=== PATIENT | female | born 1945 | race Caucasian/White ===

== ENCOUNTER 2019-06-05 10:44 | Day surgery (SDC) | payer MEDICARE, OTHER ==
[~2019-06-05] VITALS: Ht 154.9 cm; Wt 51.0 kg
[~2019-06-05 10:44] MED LIST: AZIT250 PO; Antivert25 MG PO; BENZ100A PO; ESZO1 PO; FLUV20; HYDROCODON-ACE1 EACH PO; ISOMON30 PO; LATA.005SO; LOSA50 PO; LOVA40 PO; LOW DOSE ASPIRI81 MG PO; TRAV.004OP OD; Ultram50 MG PO
[2019-06-05] MEDS ORDERED: CELE100 PO (11:24)
[2019-06-05] MEDS ORDERED: LATA.005SO BOTHEYES (11:25)
[2019-06-05] MEDS ORDERED: BRIMONIDINE TART5 M1 BOTHEYES (11:25)
== END 2019-06-05 15:00 | disposition home or self-care (01) ==
LOC: ORSCSDS 10:44
PROVIDERS: Podiatrist Foot & Ankle Surgery
PROC: 0SGN04Z Fusion of Left Metatarsal-Phalangeal Joint with Internal Fixation Device, Open Approach (ICD-10-PCS; principal; 2019-06-05 12:30)
PROC: 0HTRXZZ Resection of Toe Nail, External Approach (ICD-10-PCS; principal; 2019-06-05 12:30)
DX: M20.22 Hallux rigidus, left foot (principal); M20.5X9 Other deformities of toe(s) (acquired), unspecified foot; Q82.8 Other specified congenital malformations of skin; B35.1 Tinea unguium; Z01.818 Encounter for other preprocedural examination; I10 Essential (primary) hypertension; E78.5 Hyperlipidemia, unspecified; Z79.899 Other long term (current) drug therapy
CPT/HCPCS: 93005; 93010; C1713; C1769; J0171; J0690; J1100; J1885; J2250; J2405; J2704; J3010; J7120

== ENCOUNTER → 2019-10-09 | Outpatient (CLI) | payer MEDICARE, OTHER ==
[~2019-10-09] MED LIST changes: +BRIMONIDINE TART5 M1 BOTHEYES; +CELE100 PO; +LATA.005SO BOTHEYES
[2019-10-09 10:31] LABS: Creatinine Urine 49.7 mg/dL (27.00-270.00)
== END | disposition home or self-care (01) ==
LOC: LAB 09:32 → LAB SHORT 09:32 → LAB FUT 10-05 11:45
PROVIDERS: Internal Medicine
DX: E87.6 Hypokalemia (principal)
CPT/HCPCS: 81050; 82570; 84133; 84300

== ENCOUNTER 2021-01-25 00:20 | Emergency (ER) | payer MEDICARE, OTHER ==
[~2021-01-25] VITALS: Ht 152.4 cm; Wt 49.9 kg
[2021-01-25 03:28] LABS: BASOPHILS ABSOLUTE AUTO 0.02 K/mm3 (0.00-0.23); BASOPHILS PERCENT AUTO 0 % (0-2); EOSINOPHILS ABSOLUTE AUTO 0.02 K/mm3 (0.00-0.68); EOSINOPHILS PERCENT AUTO 0 % (0-6); Hematocrit 40.4 % (33.0-51.0); Hemoglobin 13.5 g/dL (11.5-16.0); IMMATURE GRAN ABSOLUTE AUTO 0.03 K/mm3 (0.00-0.10); IMMATURE GRAN PERCENT AUTO 0 % (0-1); LYMPHOCYTES ABSOLUTE AUTO 0.41 K/mm3 (0.84-5.20); LYMPHOCYTES PERCENT AUTO 4 % (21-46); MONOCYTES ABSOLUTE AUTO 0.28 K/mm3 (0.16-1.47); MONOCYTES PERCENT AUTO 3 % (4-13); Mean Corpuscular HGB 29.8 pg (26.0-34.0); Mean Corpuscular HGB Conc 33.4 g/dL (31.5-36.5); Mean Corpuscular Volume 89 fL (80-100); Mean Platelet Volume 10.3 fL (9.1-12.4); NEUTROPHILS ABSOLUTE AUTO 10.25 K/mm3 (1.96-9.15); NEUTROPHILS PERCENT AUTO 93 % (41-73); Platelet Count 238 K/mm3 (150-400); RDW Coefficient Variation 12.5 % (11.7-14.2); RDW Standard Deviation 40.8 fL (35.1-46.3); Red Blood Cell Count 4.53 M/mm3 (3.80-5.20); White Blood Cell Count 11.01 K/mm3 (4.00-11.30)
[2021-01-25 03:44] LABS: Alanine Aminotransfer (ALT/SGP 23 U/L (12-78); Albumin, Blood 3.9 g/dL (3.4-5.0); Albumin/Globulin Ratio 1.1 (0.8-1.8); Alk Phos 91 U/L (50-136); Anion Gap 7 mmol/L (6-16); Aspartate Aminotrans (AST/SGOT 15 U/L (12-37); Bilirubin, Total 0.6 mg/dL (0.1-1.0); Blood Urea Nitrogen 22 mg/dL (8-24); Bun/Creatinine Ratio 26.1 (12.0-20.0); CO2, Blood 25 mmol/L (21-32); Calcium, Blood 9.5 mg/dL (8.5-10.1); Chloride, Blood 111 mmol/L (98-108); Creatinine, Blood 0.84 mg/dL (0.40-1.00); Globulin, Blood 3.5 g/dL (2.2-4.0); Glomerular Filtration Rate >60 (60-); Glucose, Blood 137 mg/dL (70-99); Sodium, Blood 143 mmol/L (136-145); Total Protein, Blood 7.4 g/dL (6.4-8.2)
[2021-01-25] MEDS ORDERED: ONDA4ODT MM (04:09)
== END 2021-01-25 04:49 | disposition home or self-care (01) ==
LOC: ER 00:20
PROVIDERS: Emergency Medicine
DX: R11.2 Nausea with vomiting, unspecified (principal); E78.00 Pure hypercholesterolemia, unspecified; Z88.5 Allergy status to narcotic agent; Z88.8 Allergy status to other drugs, medicaments and biological substances; Z79.899 Other long term (current) drug therapy
CPT/HCPCS: 80053; 83690; 85025; 96374; 99283-25; J2405; J7030

== ENCOUNTER 2023-07-08 09:04 | Day surgery (SDC) | payer OTHER ==
[~2023-07-08] VITALS: Ht 152.4 cm; Wt 47.7 kg
[~2023-07-08 09:04] MED LIST changes: +AMLO5 PO; +ARTIFICIAL TEAR15 M2; -CELE100 PO; +CELE200 PO; -ESZO1 PO; +ESZO2 PO; +Hydrocortiso453.6 GM; -LOVA40 PO; +Lovastatin20 MG PO; +ONDA4ODT MM; +PAIN RELIEF1 EACH TOP; +RETIN-A45 GM; +VOLTAREN ARTHRI20 GM TOP; +Vitamin D1000 UNI1 PO
--- NOTE | 2023-07-08 10:08 | NUR ---
07/08/23 1008 Phuong Hoang PT COMFORTABLE IN BED. CALL LIGHT. WITHIN REACH. BED IN LOWEST POSITION. EXTRA WARM BLANKETS PROVIDED
[2023-07-08 11:54] VITALS: BP 118/60
== END 2023-07-08 12:10 | disposition home or self-care (01) ==
LOC: ORSCSDS 09:04
PROVIDERS: Surgery
PROC: 0DBP8ZX Excision of Rectum, Via Natural or Artificial Opening Endoscopic, Diagnostic (ICD-10-PCS; principal; 2023-07-08 10:30)
PROC: 0DBM8ZX Excision of Descending Colon, Via Natural or Artificial Opening Endoscopic, Diagnostic (ICD-10-PCS; principal; 2023-07-08 10:30)
DX: Z12.11 Encounter for screening for malignant neoplasm of colon (principal); K63.5 Polyp of colon; K62.1 Rectal polyp; K57.30 Diverticulosis of large intestine without perforation or abscess without bleeding; I10 Essential (primary) hypertension; E78.5 Hyperlipidemia, unspecified; Z79.899 Other long term (current) drug therapy
CPT/HCPCS: 88305; J2704; J7120

== ENCOUNTER 2024-07-07 08:06 | Day surgery (SDC) | payer OTHER ==
[~2024-07-07] VITALS: Ht 152.4 cm; Wt 50.5 kg
[2024-07-07] VITALS (22 sets, daily range): BP systolic 115–144; BP diastolic 57–80
[~2024-07-07 08:06] MED LIST changes: +CeFAZolin Sodium 2,000 MG in NS 100 ML IV SCH; +Lactated Ringer's 1,000 ML IV SCH; +METO10 PO; +REFRESH RELIEVA10 M4
[2024-07-07] MEDS ORDERED: FentaNYL Citrate 50 MCG/ML 2 ML Injection IV PRN ×3 (08:25)
[2024-07-07] MEDS ORDERED: HYDROmorphone HCl/Pf 1MG SYR IV PRN (08:25)
[2024-07-07] MEDS ORDERED: Ondansetron HCl 2 MG / ML 2ML Vial IV PRN (08:25)
[2024-07-07] MEDS ORDERED: propofoL 20 ML IV ONE (08:38)
[2024-07-07] MEDS ORDERED: FentaNYL Citrate 50 MCG/ML 2 ML Injection ONE ×4 (08:38→12:03)
[2024-07-07] MEDS ORDERED: Rocuronium Bromide 10 MG/ML 5ML Injection IV ONE (08:40)
--- NOTE | 2024-07-07 08:50 | NUR ---
Ambulatory in Day Surgery WITH [facility]. History, Chart, Medications and Allergies reviewed before start of procedure. Pre-Op teaching done. Pt verbalizes understanding. Patient States Post-Procedure ride home has been arranged WITH [employer]. BELONGINGS PLACED UNDER GURN.
[2024-07-07] MEDS ORDERED: Bupivacaine 0.5% HCl 5 MG/ML 30MLVIAL ONE (09:05)
[2024-07-07] MEDS ORDERED: Ondansetron HCl 2 MG / ML 2ML Vial ONE (09:32)
[2024-07-07] MEDS ORDERED: Dexamethasone Sod Phos 10 MG/ML 1ML VIAL ONE (09:32)
[2024-07-07] MEDS ORDERED: Phenylephrine HCl 100 MCG/ML-NS 10MLSYR (1MG/10ML) ONE (09:42)
[2024-07-07] MEDS ORDERED: Sugammadex Sodium 200 MG/2ML SDV (100 MG/ML) ONE (10:38)
[2024-07-07] MEDS ORDERED: TraMADol HCl 50 MG Tab PO ONE (11:20)
[2024-07-07] MEDS ORDERED: HYDROmorphone HCl/Pf 1MG SYR ONE (11:28)
[2024-07-07] MEDS ORDERED: Ketorolac Tromethamine 30mg Vial ONE (12:23)
[2024-07-07] MEDS ORDERED: HYDROmorphone HCl/Pf 1MG SYR IV ONE (12:25)
[2024-07-07] MEDS ORDERED: Acetaminophen 500 MG Tab PO ONE (12:25)
[2024-07-07] MEDS ORDERED: Ketorolac Tromethamine 15mg Vial IV ONE (12:25)
--- NOTE | 2024-07-07 13:43 | NUR ---
New prescription obtained from for [place] and Zofran
--- NOTE | 2024-07-07 14:13 | NUR ---
Discharge instructions reviewed with patient. Patient verbalizes understanding. Copy given to patient to take home. Dressings c/d/i. Prescriptions placed in discharge folder. Ice pack provided. Patient States Post-Procedure ride home has been arranged. Discharged via wheelchair to private car for ride home.
== END 2024-07-07 14:21 | disposition home or self-care (01) ==
LOC: ORSCMMR 08:06 → ORD 09:30 → ORSCMMR 14:21 → ORD 07-25 07:30
PROVIDERS: Surgery
PROC: 0WQF4ZZ Repair Abdominal Wall, Percutaneous Endoscopic Approach (ICD-10-PCS; principal; 2024-07-07 09:30)
PROC: 0YUA4JZ Supplement Bilateral Inguinal Region with Synthetic Substitute, Percutaneous Endoscopic Approach (ICD-10-PCS; principal; 2024-07-07 09:30)
PROC: 8E0W4CZ Robotic Assisted Procedure of Trunk Region, Percutaneous Endoscopic Approach (ICD-10-PCS; principal; 2024-07-07 09:30)
PROC: 0YU74JZ Supplement Right Femoral Region with Synthetic Substitute, Percutaneous Endoscopic Approach (ICD-10-PCS; principal; 2024-07-07 09:30)
DX: K40.20 Bilateral inguinal hernia, without obstruction or gangrene, not specified as recurrent (principal); K41.90 Unilateral femoral hernia, without obstruction or gangrene, not specified as recurrent; K45.8 Other specified abdominal hernia without obstruction or gangrene; K43.2 Incisional hernia without obstruction or gangrene; I10 Essential (primary) hypertension; E78.5 Hyperlipidemia, unspecified; J45.909 Unspecified asthma, uncomplicated; Z79.899 Other long term (current) drug therapy
CPT/HCPCS: A9270; C1781; J0690; J1100; J1171; J1885; J2371; J2405; J2704; J3010; J7120